=== PATIENT | male | born 1995 | race Caucasian/White ===

== ENCOUNTER → 2023-10-30 09:24 | Outpatient (CLI) | payer OTHER, SELFPAY ==
--- NOTE | 2023-10-30 11:00 | DI.MRI.S_ITS ---
PROCEDURE: MR LUMBAR SPINE WO CON INDICATIONS: LOW BACK PAIN TECHNIQUE: Noncontrast sagittal T1 spin echo and T2 fast echo, sagittal STIR, and T2 fast spin echo through the lumbar spine. In cases with scoliosis, additional coronal T2 fast spin echo may be performed. COMPARISON: None. FINDINGS: Image quality: Excellent. Alignment and Curvature: There is normal bony alignment. Bone Marrow: Marrow is of normal overall signal. No acute vertebral body compression fractures. Spinal Cord: Conus medullaris terminates at the L1 level. Visualized cord demonstrates normal signal and size. Paraspinous Soft Tissues: No paravertebral masses. T12-L1: Normal appearance. L1-L2: Normal appearance. L2-L3: Normal appearance. L3-L4: Mild broad-based disc bulge and bilateral facet arthrosis with hypertrophy of ligamentum flavum with mild central canal stenosis. L4-L5: Loss of disc height and disc signal. Broad-based disc bulge and bilateral facet arthrosis causing mild central canal stenosis, and moderate bilateral neural foraminal narrowing. Bulging disc is seen contacting bilateral L4 nerve roots worse on the right side. L5-S1: Loss of disc height and disc signal. Mild diffuse disc bulge without significant central canal stenosis or neural foraminal narrowing. IMPRESSION: 1. Degenerative disc disease in lower lumbar spine causing mild central canal stenosis and moderate bilateral neural foraminal narrowing at L4-5 level as described above. There is likely compression of bilateral exiting L4 nerve roots at this level. 2. No marrow edema. No acute compression fracture. Dictated by: Raúl Booth M.D. on 10/30/2023 at 16:06 Approved by: Raúl Booth M.D. on 10/30/2023 at 16:09
== END ==
PROVIDERS: Referring Provider Nurse Practitioner Family; Visit Provider Nurse Practitioner Family
DX: M51.36 Other intervertebral disc degeneration, lumbar region (principal); M51.37 Other intervertebral disc degeneration, lumbosacral region; M48.061 Spinal stenosis, lumbar region without neurogenic claudication; M54.50 Low back pain, unspecified
CPT/HCPCS: 72148

== ENCOUNTER → 2023-11-14 13:12 | Outpatient (CLI) | payer OTHER, SELFPAY ==
--- NOTE | 2023-11-14 13:13 | DI.MRI.S_ITS ---
PROCEDURE: MR HIP RT WO CON INDICATIONS: LOW BACK PAIN/RT HIP PAIN TECHNIQUE: Noncontrast coronal T1 spin echo and STIR through the bony pelvis. Coronal and axial T2 fast spin echo with fat saturation, sagittal T1 spin echo, and oblique axial T2 fast spin echo with fat saturation through the hip. COMPARISON: None. FINDINGS: Image quality: Excellent. Bones and joints: Bone marrow of the pelvic ring and proximal femurs show normal signal throughout. No intraosseous lesions or fractures. No avascular necrosis of the femoral head. The visualized lower lumbar spine appears normally aligned. Tendons and ligaments: The gluteus medius and minimus tendons appear intact, without associated muscle atrophy. The proximal iliotibial band appears intact. The iliopsoas tendon appears intact, without adjacent bursal fluid collections. The origin of the hamstring tendon is intact at the ischial tuberosity. The tendons for the direct and indirect heads of the rectus femoris muscle appear intact. Labrum and cartilage: The acetabular labrum appears intact. Cartilage surface of the femoral head appears of normal thickness. There is normal morphology of the femoral head and acetabulum. Soft tissues: Lateral to the right gluteus musculature in the superficial subcutaneous tissues, there is a focal 1.7 x 1.0 cm lesion with peripheral [id number] signal and central fatty signal (image 9 of series 9 and 10). The subcutaneous tissues are otherwise unremarkable. Visualized muscles demonstrate normal bulk and internal signal. Quadratus femoris muscle demonstrates no internal edema to suggest ischiofemoral impingement. The proximal sciatic neurovascular bundle appears normal adjacent to the hamstring tendons. Small fat containing right inguinal hernia. IMPRESSION: 1. Superficial 1.7 cm oval lesion is seen in the subcutaneous tissues lateral to the right gluteus musculature with peripheral [id number] signal in central fatty signal, seen only on large [id number] coronal images. Findings most likely represent focal fat necrosis. Recommend clinical correlation and follow-up. If there is continued clinical concern or if the lesion increases in size, further characterization could be performed with ultrasound or contrast enhanced MRI. 2. No labral tear or focal cartilage defect. No acute trabecular bone injury. No significant ligament or tendon injury is seen. 3. Small fat containing right inguinal hernia. Approved by: Triston Diallo M.D. on 11/15/2023 at 16:00
== END ==
PROVIDERS: Referring Provider Nurse Practitioner Family; Visit Provider Nurse Practitioner Family
DX: K40.90 Unilateral inguinal hernia, without obstruction or gangrene, not specified as recurrent (principal); L98.9 Disorder of the skin and subcutaneous tissue, unspecified; M54.50 Low back pain, unspecified
CPT/HCPCS: 73721